=== PATIENT | female | born 1950 | race Two or more races ===

== ENCOUNTER → 2018-03-19 | Outpatient (CLI) | payer OTHER ==
[~2018-03-19] MED LIST: SYNTHROID100 MCG
== END | disposition home or self-care (01) ==
LOC: MAMO-SONO 08:54
DX: Z12.31 Encounter for screening mammogram for malignant neoplasm of breast (principal); N60.11 Diffuse cystic mastopathy of right breast; N60.12 Diffuse cystic mastopathy of left breast

== ENCOUNTER 2018-06-18 10:36 | Outpatient (CLI) | payer OTHER | END 2018-06-18 13:57 | disposition home or self-care (01) | LOC: RAD 10:36 | DX: M79.673 Pain in unspecified foot (principal) ==

== ENCOUNTER 2018-09-08 08:06 | Outpatient (CLI) | payer OTHER ==
[~2018-09-08] VITALS: Ht 152.4 cm; Wt 67.1 kg
== END 2018-09-08 11:44 | disposition home or self-care (01) ==
LOC: OFIC 805 08:06
DX: J30.89 Other allergic rhinitis (principal); R49.0 Dysphonia; R07.0 Pain in throat

== ENCOUNTER 2018-10-19 10:18 | Outpatient (CLI) | payer OTHER ==
[~2018-10-19] VITALS: Ht 152.4 cm; Wt 67.1 kg
== END 2018-10-19 10:35 | disposition home or self-care (01) ==
LOC: OFIC 805 10:18
DX: J32.8 Other chronic sinusitis (principal); R07.0 Pain in throat; R49.0 Dysphonia; J30.89 Other allergic rhinitis

== ENCOUNTER 2019-02-12 07:05 | Outpatient (CLI) | payer OTHER | END 2019-02-12 07:23 | disposition home or self-care (01) | LOC: MRI 07:05 | DX: M54.5 Low back pain (principal) | CPT/HCPCS: 72148 ==

== ENCOUNTER 2019-08-13 09:11 | Outpatient (CLI) | payer OTHER | END 2019-08-13 09:14 | disposition home or self-care (01) | LOC: MAMO-SONO 09:11 | DX: N60.11 Diffuse cystic mastopathy of right breast (principal); N60.12 Diffuse cystic mastopathy of left breast; Z12.31 Encounter for screening mammogram for malignant neoplasm of breast ==

== ENCOUNTER 2019-09-17 07:34 | Outpatient (CLI) | payer OTHER | END 2019-09-17 09:57 | disposition home or self-care (01) | LOC: NUCLEAR 07:34 | DX: I25.10 Atherosclerotic heart disease of native coronary artery without angina pectoris (principal) | CPT/HCPCS: 78452; 93017; A9500 ==

== ENCOUNTER 2020-05-16 13:59 | Outpatient (CLI) | payer OTHER | END 2020-05-16 14:12 | disposition home or self-care (01) | LOC: RAD 13:59 → MRI 14:15 | PROVIDERS: ATTEND Orthopaedic Surgery | DX: M25.511 Pain in right shoulder (principal) | CPT/HCPCS: 73221 ==

== ENCOUNTER 2020-06-08 13:37 | Outpatient (CLI) | payer OTHER | END 2020-06-08 13:47 | disposition home or self-care (01) | LOC: RAD 13:37 → MAMO-SONO 13:37 → RAD 13:47 → MAMO-SONO 14:15 | PROVIDERS: ATTEND Specialist | DX: R07.89 Other chest pain (principal) ==

== ENCOUNTER 2020-11-06 14:42 | Outpatient (CLI) | payer OTHER | END 2020-11-06 15:38 | disposition home or self-care (01) | LOC: MAMO-SONO 14:42 | PROVIDERS: ATTEND Specialist | DX: R92.0 Mammographic microcalcification found on diagnostic imaging of breast (principal); Z12.31 Encounter for screening mammogram for malignant neoplasm of breast ==

== ENCOUNTER → 2021-01-03 | Outpatient (CLI) | payer OTHER | END | disposition home or self-care (01) | LOC: PPH VACUNA | DX: Z23 Encounter for immunization (principal) ==

== ENCOUNTER 2021-09-07 15:31 | Outpatient (CLI) | payer OTHER | END 2021-09-07 15:40 | disposition home or self-care (01) | LOC: RAD 15:31 | PROVIDERS: ATTEND Internal Medicine | DX: I10 Essential (primary) hypertension (principal); Z01.810 Encounter for preprocedural cardiovascular examination; R10.13 Epigastric pain ==

== ENCOUNTER 2021-10-01 08:35 | Outpatient (CLI) | payer OTHER | END 2021-10-01 08:47 | disposition home or self-care (01) | LOC: SONOGRAMA 08:35 | PROVIDERS: ATTEND Internal Medicine Endocrinology, Diabetes & Metabolism | DX: R10.84 Generalized abdominal pain (principal); E04.1 Nontoxic single thyroid nodule ==

== ENCOUNTER → 2021-10-29 | Outpatient (CLI) | payer OTHER | END | disposition home or self-care (01) | LOC: RAD 08:19 | PROVIDERS: ATTEND Surgery | DX: I10 Essential (primary) hypertension (principal) ==

== ENCOUNTER 2021-12-28 14:22 | Outpatient (CLI) | payer OTHER | END 2021-12-28 14:24 | disposition home or self-care (01) | LOC: RAD 14:22 | PROVIDERS: ATTEND Orthopaedic Surgery | DX: M25.571 Pain in right ankle and joints of right foot (principal) ==

== ENCOUNTER 2022-06-06 09:28 | Outpatient (CLI) | payer OTHER | END 2022-06-06 09:42 | disposition home or self-care (01) | LOC: MAMO-SONO 09:28 | PROVIDERS: ATTEND Specialist | DX: Z12.31 Encounter for screening mammogram for malignant neoplasm of breast (principal); N60.11 Diffuse cystic mastopathy of right breast; N60.12 Diffuse cystic mastopathy of left breast ==

== ENCOUNTER 2023-07-17 10:07 | Outpatient (CLI) | payer OTHER | END 2023-07-17 10:22 | disposition home or self-care (01) | LOC: EDBD 10:07 → MAMO-SONO 10:07 | PROVIDERS: ATTEND Specialist | DX: E04.1 Nontoxic single thyroid nodule (principal); N60.11 Diffuse cystic mastopathy of right breast; N60.12 Diffuse cystic mastopathy of left breast; Z12.31 Encounter for screening mammogram for malignant neoplasm of breast ==

== ENCOUNTER 2024-07-27 09:58 | Outpatient (CLI) | payer OTHER | END 2024-07-27 10:08 | disposition home or self-care (01) | LOC: MAMO-SONO 09:58 | PROVIDERS: ATTEND Specialist | DX: N60.11 Diffuse cystic mastopathy of right breast (principal); N60.12 Diffuse cystic mastopathy of left breast; Z12.31 Encounter for screening mammogram for malignant neoplasm of breast ==